=== PATIENT | female | born 1985 | race African-American/Black ===

== ENCOUNTER 2023-04-06 09:30 | Outpatient (CLI) | payer OTHER ==
[2023-04-06 12:35] LABS: CALCIUM 9.7 mg/dL (8.5-10.3); CREATININE 0.9 mg/dL (0.6-1.3); POTASSIUM 3.8 mmol/L (3.5-4.5)
[2023-04-06 12:46] LABS: THYROID STIMULATING HORMONE 0.85 uIU/mL (0.34-5.60)
[2023-04-06 13:48] LABS: RHEUMATOID FACTOR NEGATIVE (Negative)
== END 2023-04-06 09:45 | disposition home or self-care (01) ==
LOC: LAB.N 09:30
PROVIDERS: ATTEND Physician Assistant Medical
DX: G56.03 Carpal tunnel syndrome, bilateral upper limbs (principal)
CPT/HCPCS: 36415; 80048; 84443; 86430

== ENCOUNTER 2023-10-30 18:52 | Outpatient (CLI) | payer OTHER | END 2023-10-30 18:53 | disposition critical access hospital (66) | LOC: EMS 18:52 | DX: M54.6 Pain in thoracic spine (principal); R25.2 Cramp and spasm; X58.XXXA Exposure to other specified factors, initial encounter; Y92.001 Dining room of unspecified non-institutional (private) residence as the place of occurrence of the external cause | CPT/HCPCS: A0425; A0429 ==

== ENCOUNTER 2023-10-30 19:12 | Emergency (ER) | payer OTHER ==
--- NOTE | 2023-10-30 21:31 | ED Physician Documentation ---
History of Present Illness - Stated complaint Stated Complaint: BACK PX - Chief complaint Chief Complaint: Back Pain - Additonal information Additional information: Patient 38-year-old female presenting to the emergency department with left upper back pain. Began acutely today while moving some furniture. Denies trauma to the back, fever, bowel or bladder incontinence, lower extremity weakness. Review of Systems Constitutional: denies: Fever Eyes: denies: Loss of vision Ears: denies: Loss of hearing Nose: denies: Rhinorrhea / runny nose Throat: denies: Dental pain / toothache Cardiac: denies: Chest pain / pressure Respiratory: denies: Dyspnea GI: denies: Abdominal Pain : denies: Dysuria Skin: denies: Rash Musculoskeletal: reports: Back pain. denies: Neck pain Neurologic: denies: Generalized weakness Psychiatric: denies: Depressed Endocrine: denies: Polydypsia PD PAST MEDICAL HISTORY - Past Medical History Past Medical History: No - Past Surgical History Past Surgical History: No - Present Medications Home Medications: Ambulatory Orders Medication Instructions Recorded Confirmed Acetaminophen [Pain Relief] 650 mg PO Q8HR #30 tab 10/30/23 Cyclobenzaprine [Flexeril] 10 mg PO TID PRN #20 tablet 10/30/23 Ibuprofen [Motrin] 800 mg PO Q8H PRN #30 tablet 10/30/23 Lidocaine Patch 5% [Lidoderm Patch] 1 patch TOP DAILY PRN #10 patch 10/30/23 - Allergies Allergies/Adverse Reactions: Allergies Allergy/AdvReac Type Severity Reaction Status Date / Time No Known Drug Allergies Allergy Verified 10/30/23 19:21 - Social History Does the pt smoke?: No Smoking Status: Never smoker Does the pt drink ETOH?: No Does the pt have substance abuse?: No PD ED PE NORMAL - General General: Alert and oriented X 3, No acute distress, Well developed/nourished - HEENT HEENT: Atraumatic - Neck Neck: Supple, no meningeal sign - Cardiac Cardiac: RRR, No murmur, No gallop, Strong equal pulses - Respiratory Respiratory: No respiratory distress, Clear bilaterally - Abdomen Abdomen: Normal bowel sounds - Back Back: No spinal TTP, Other (Tenderness to palpation, left rhomboid major-minor.) Results - Vitals Vitals: Vital Signs - 24 hr 10/30/23 19:16 Temperature 36.6 C Heart Rate 86 Respiratory 16 Rate Blood Pressure 110/77 O2 Saturation 100 Oxygen O2 Source Room air PD Medical Decision Making - ED course Complexity details: reviewed results, re-evaluated patient, d/w patient ED course: Patient 38-year-old female presenting with upper left back pain. Began acutely today while moving furniture. Afebrile, hematin stable on arrival to the emergency department. Notable tenderness in the area approximating the left rhomboid major, minor. Symptoms exacerbated with physical activity of the axial skeleton. No point tenderness to the spine. Clear aeration in all lung [place]. I do not have any concern for tension pneumothorax, aortic pathology at this time. Patient has normal varnish finisher strength in her upper extremities. Will discharge medication for symptomatic management and have her follow-up with her primary care doctor. Clear return precautions given. Departure - Departure Disposition: Home, Self Care Clinical Impression: Back pain Instructions: ED Back Care Tips Prescriptions: Acetaminophen [Pain Relief] 650 mg PO Q8HR #30 tab Cyclobenzaprine [Flexeril] 10 mg PO TID PRN #20 tablet PRN Reason: Spasms Lidocaine Patch 5% [Lidoderm Patch] 1 patch TOP DAILY PRN #10 patch PRN Reason: pain Ibuprofen [Motrin] 800 mg PO Q8H PRN #30 tablet PRN Reason: PAIN &/OR FEVER Comments: Thank you for allowing us to care for you today at [facility]. Today in the emergency department you were evaluated for any possible dangerous or life-threatening medical emergency. As we discussed I believe that you have suffered a musculoskeletal injury, primarily to the rhomboid major-minor of the left side of your back. I written some medications that can help for pain control as well as a muscle relaxer for use at home. Please be aware that the muscle relaxer is sedating and should not be used if you are operating a motor vehicle, using of the machinery or you are the sole private advisor of young children. Also provided a work note for use as needed. Please drink plenty of fluids. I recommend gentle activity as tolerated as complete and activity can make back pain such as which you are experiencing worse over time. If it anytime you develop new or worsening symptoms please return to the emergency department. Elsewise please follow-up with your primary care doctor concerning your ER visit as soon as possible.
[2023-10-30] MEDS: diazePAM 5 MG TABLET PO STA (21:35)
[2023-10-30] MEDS: LIDOCAINE PATCH 5% TOP STA (21:35)
[2023-10-30] MEDS: IBUPROFEN 800 MG TABLET PO STA (21:35)
[2023-10-30] MEDS: oxyCODONE 5 MG TABLET PO STA (21:35)
[2023-10-30 22:11] VITALS: BP 114/72; O2SAT 98
== END 2023-10-30 22:10 | disposition home or self-care (01) ==
LOC: EDUNIT# → ED 19:12
DX: M54.6 Pain in thoracic spine (principal); X58.XXXA Exposure to other specified factors, initial encounter; Y93.E6 Activity, residential relocation
CPT/HCPCS: 99283; A9270